=== PATIENT | female | born 1950 | race Caucasian/White ===

== ENCOUNTER → 2016-05-11 | Outpatient (CLI) | payer BC, MEDICARE, OTHER ==
--- NOTE | 2016-05-12 08:09 | MM ---
Reason for exam: screening (asymptomatic). Last mammogram was performed 1 year and 3 months ago. History: Patient is postmenopausal. Took estrogen for 10 years. Physical Findings: A clinical breast exam by your physician is recommended on an annual basis and results should be correlated with mammographic findings. MG 3D Screening Mammo W/Cad Bilateral CC and MLO view(s) were taken. Prior study comparison: January 31, 2015, bilateral MG screening mammo w CAD. January 30, 2014, bilateral MG screening mammo w CAD. There are scattered fibroglandular densities. There is no discrete abnormality. No significant changes when compared with prior studies. ASSESSMENT: Negative, BI-RAD 1 RECOMMENDATION: Routine screening mammogram of both breasts in 1 year.
== END | disposition home or self-care (01) ==
LOC: RADMAMWWP 10:21
PROVIDERS: ATTEND Internal Medicine
DX: Z12.31 Encounter for screening mammogram for malignant neoplasm of breast (principal)
CPT/HCPCS: 77063; G0202

== ENCOUNTER 2017-02-28 11:20 | Day surgery (SDC) | payer MEDICARE ==
[2017-02-28] MEDS ORDERED: LIDOCAINE 1% 20 ML VIAL (10MG/ML) FOR IV START INTRADERMA ONE (12:02)
[2017-02-28] MEDS ORDERED: ONDANSETRON 4 MG/2 ML VIAL IVP ONE (12:03)
[2017-02-28] MEDS ORDERED: LACTATED RINGERS 1,000 ML IV ONE (12:03)
[2017-02-28] MEDS ORDERED: DEXAMETHASONE SOD PHOS (MDV) 100 MG/10 ML VIAL IV ONE (12:03)
[2017-02-28] MEDS ORDERED: fentaNYL (PF) 50 MCG/ML 2 ML AMP ONE (14:19)
[2017-02-28] MEDS ORDERED: PROPOFOL 10 MG/ML 20 ML VIAL IV ONE (14:19)
[2017-02-28] MEDS ORDERED: ePHEDrine SULFATE/0.9% NACL/PF 50 MG/5 ML SYRINGE IV ONE (14:19)
[2017-02-28] MEDS ORDERED: ceFAZolin 1,000 MG VIAL ONE (14:19)
[2017-02-28] MEDS ORDERED: MIDAZOLAM 2 MG/2 ML VIAL ONE (14:19)
[2017-02-28] MEDS ORDERED: LIDOCAINE 1% INJ 10MG/ML (20 ML MDV) ONE (14:19)
[2017-02-28] MEDS ORDERED: IOHEXOL 350 MG/ML 50ML BOTTLE MISCELLANE ONE (14:37)
[2017-02-28 15:28] VITALS: TEMP 97.2
--- NOTE | 2017-02-28 15:30 | P.OP ---
Date of Procedure: 02/28/17 Preoperative Diagnosis: Distal left ureteral calculus Postoperative Diagnosis: Distal left ureteral calculus Anesthesia: GETA Surgeon: Neil Soria Estimated Blood Loss (ml): 0 Pathology: other (Left ureteral calculus) Indications for Procedure: The patient is a 66-year-old female with a history of urolithiasis who recently developed left flank pain and was discovered to have a 3-4 mm calculus at the left ureteral vesicle junction. The patient has not passed the calculus to her knowledge and says that she has been straining her urine regularly. The patient has requested left ureteroscopy with lithotripsy for treatment and was admitted for this purpose. She also has a nonobstructive 3 or 4 mm calculus in the lower pole of the left kidney. Description of Procedure: The patient was taken to the operating suite where adequate general anesthesia via LMA was instituted. The patient was placed in the dorsal lithotomy position with her legs suspended from padded Kennedy stirrups. Pneumatic compression stockings were applied to the lower legs. The genitalia was prepped with Betadine soap and draped in a sterile fashion. The external genitalia and urethral meatus were unremarkable. The 22-Belizean cystoscope sheath with 30 lens was passed through the urethra and into the bladder. The right ureteral orifice was unremarkable. There was some slight hyperemia surrounding the left ureteral orifice. The bladder was free of tumor foreign body and diverticulum. A left distal ureterogram was performed using an 8- [place] cone-tipped catheter. This confirmed a small filling defect which appeared to be within the intramural tunnel. A 0.035 straight Glidewire was passed through the left ureteral orifice and up to the proximal ureter. I attempted to pass the 8-Belizean semirigid ureteroscope through the left ureteral meatus but this proved to be impossible due to some edema. The intramural ureter was then dilated to 11-Belizean using the obturator from a 13-Belizean reentry sheath. The 8-Belizean semirigid ureteroscope was then passed through the left ureteral orifice and a 2 mm calculus was identified just superior to the intramural ureter. The ureteral calculus was trapped in a 1.9-Belizean nitinol stone basket and removed from the ureter without difficulty with the ureteroscope. The ureter was reexamined and no additional distal calculi were noted. The flexible ureteroscope was then advanced over the Glidewire and up into the left kidney. A computed tomography scan had identified a 3 mm calculus in a lower pole calyx but despite multiple attempts at visualizing a calculus this proved impossible. The ureteroscope was withdrawn leaving the Glidewire in place. The 22-Belizean cystoscope sheath was backloaded onto the Glidewire and reintroduced into the bladder. A 6-Belizean by 24 cm double-J catheter was then advanced over the Glidewire and positioned so that the proximal end coiled in the region of the renal pelvis and the distal end coiled in the bladder The cystoscope and Glidewire were removed and the procedure was ended. The patient tolerated the procedure well and left the operative room awake and in satisfactory condition. She will return in 1 week for cystoscopy and removal of the double-J catheter.
[2017-02-28 15:56] VITALS: RESP 16
--- NOTE | 2017-02-28 15:57 | FL ---
Fluoroscopy HISTORY: Abdominal pain, distal left ureteral calculus 10 seconds fluoroscopy time supplied to the referring clinician. 3 intraoperative C-arm images docu ment the procedure. See dictated report from urology.
[2017-02-28 16:16] VITALS: BP 179/83; PULSE 87
== END 2017-02-28 16:34 | disposition home or self-care (01) ==
LOC: OR 11:20
PROVIDERS: ATTEND Urology
DX: N20.2 Calculus of kidney with calculus of ureter (principal); Z87.442 Personal history of urinary calculi; I10 Essential (primary) hypertension; Z80.42 Family history of malignant neoplasm of prostate; Z79.899 Other long term (current) drug therapy; Z88.5 Allergy status to narcotic agent
CPT/HCPCS: 82365; 74420; 52352; 52332; C2625; C1758; C1769; J2250; J2405; J0690; J2001; J3010; J1100; J2704; Q9967

== ENCOUNTER → 2017-06-06 | Outpatient (CLI) | payer MEDICARE ==
--- NOTE | 2017-06-08 10:42 | MM ---
Reason for exam: screening (asymptomatic). Last mammogram was performed 1 year and 1 month ago. History: Patient is postmenopausal. Took estrogen for 10 years. Physical Findings: A clinical breast exam by your physician is recommended on an annual basis and results should be correlated with mammographic findings. MG 3D Screening Mammo W/Cad Bilateral CC and MLO view(s) were taken. Prior study comparison: May 11, 2016, bilateral MG 3d screening mammo w/cad. January 31, 2015, bilateral MG screening mammo w CAD. There are scattered fibroglandular densities. 2-3 o'clock posterior right focal asymmetry unchanged from 2014. No significant changes when compared with prior studies. ASSESSMENT: Negative, BI-RAD 1 RECOMMENDATION: Routine screening mammogram of both breasts in 1 year.
== END | disposition home or self-care (01) ==
LOC: RADMAMWWP 10:56
PROVIDERS: ATTEND Internal Medicine
DX: Z12.31 Encounter for screening mammogram for malignant neoplasm of breast (principal)
CPT/HCPCS: 77063; 77067

== ENCOUNTER 2019-06-16 16:06 | Emergency (ER) | payer MEDICARE ==
[2019-06-16 16:11] VITALS: TEMP 98
[2019-06-16] MEDS ORDERED: HYDROmorphone 0.5 MG/0.5 ML SYRINGE IM STA (16:23)
--- NOTE | 2019-06-16 16:52 | XR ---
EXAMINATION TYPE: XR wrist complete LT DATE OF EXAM: 06/16/2019 COMPARISON: NONE HISTORY: Left wrist pain TECHNIQUE: 3 views FINDINGS: There is impacted transverse fracture distal radial metaphysis. There is nondisplaced fract ure ulnar styloid process. Carpal bones are intact. There is narrowing of the scaphoid trapezium join t with spurring. There is narrowing of the first carpometacarpal joint space. IMPRESSION: Acute fractures of the distal radius and ulna as above. No significant displacement.
--- NOTE | 2019-06-16 17:11 | ED ---
Fall HPI - General Chief Complaint: Fall Stated Complaint: Fall-wrist injury Time Seen by Provider: 06/16/19 16:12 Source: patient Mode of arrival: ambulatory - History of Present Illness Initial Comments: 68-year-old female presenting today for chief complaint of fall left wrist pain. Patient states just prior to arrival she was at the home walking up the stair when she fell forward catching herself mostly with her left wrist. Patient admits to pain with ROM and swelling. Denies hand, elbow pain. Denies pain in shoulders, neck or injury to the head. States she tripped denies syncope. Patient denies numbness tingling or loss of sensation of the extremity. Upon arrival patient appears well there is no signs of acute distress, holding left wrist in splinting posture. - Related Data Home Medications Medication Instructions Recorded Confirmed PARoxetine HCL [Paxil] 30 mg PO DAILY 12/06/13 02/28/17 Zolpidem [Ambien] 5 mg PO HS PRN 12/06/13 02/28/17 Previous Rx's Medication Instructions Recorded HYDROcodone/APAP 5-325MG [[place] 5] 1 each PO Q6HR PRN 3 Days #12 tab 06/16/19 Allergies Allergy/AdvReac Type Severity Reaction Status Date / Time codeine Allergy Unknown Verified 06/16/19 16:11 Review of Systems ROS Statement: Those systems with pertinent positive or pertinent negative responses have been documented in the HPI. ROS Other: All systems not noted in ROS Statement are negative. Past Medical History Past Medical History: No Reported History History of Any Multi-Drug Resistant Organisms: None Reported Past Surgical History: No Surgical Hx Reported Past Psychological History: No Psychological Hx Reported Smoking Status: Never smoker Past Alcohol Use History: None Reported Past Drug Use History: None Reported General Exam - General Exam Comments Initial Comments: General: The patient is awake and alert, in no distress, and does not appear acutely ill. Eye: Pupils are equal, round and reactive to light, extra-ocular movements are intact. No nystagmus. There is normal conjunctiva bilaterally. No signs of icterus. Cardiovascular: There is a regular rate and rhythm. No murmur, rub or gallop is appreciated. Respiratory: Lungs are clear to auscultation, respirations are non-labored, breath sounds are equal. No wheezes, stridor, rales, or rhonchi. Musculoskeletal: Upon inspection of the wrist bilaterally. His soft tissue swelling of the left wrist in comparison with the right. Patient is able to make the okay fingers crossed thumbs-up opposes small digit and thumb extend at the wrist no evidence of wristdrop. Patient capillary refill less than 3 seconds strong radial and ulnar pulses. Patient does have rings on her ring finger (2). Normal ROM athe mcp, dip and pip joints with no tenderness. Strength 5/5 at the elbows, mCP, dip and pip joint.. Sensation intact proximal and distal to injury site. Compartments are soft and compressible. Neurological: A&O x 3. CN II-XII intact grossly, There are no obvious motor or sensory deficits. Coordination appears grossly intact. Speech is normal. Skin: Skin is warm and dry and no rashes or lesions are noted. Psychiatric: Cooperative, appropriate mood & affect, normal judgment. Limitations: no limitations Course Vital Signs 06/16/19 06/16/19 16:07 17:20 Temperature 98.0 F 98.0 F Pulse Rate 84 81 Respiratory 20 16 Rate Blood Pressure 124/70 127/87 O2 Sat by Pulse 98 98 Oximetry Procedures - Orthopedic Splinting/Casting Injury #1 Side: left Upper Extremity Injury Location: wrist Upper Extremity Immobilizer: sling/shoulder immobilizer, sugar tong splint, Ziggy wrap, synthetic pre-padded splint Medical Decision Making - Medical Decision Making 68-year-old female presenting today for chief complaint of left wrist pain after fall. no head injury, neck injury, injury to abdomen, LE or chest or right UE. Patient is neurovascularly intact. Injury states revealed a distal radius fracture with slight dorsal angulation. There is also a ulnar styloid frcture noted. Patient was placed in splint with some ventral pressure applied. Repeat neurovascular exam unchanged. Dr. Painter evaluated patient and assisted in splinting.Patient has no other noted areas of complaints. She appears well and was discharged [facility] for pain management as well as orthopedic surgery f/u. Return PMH discussed at length and i educated patient on risks involved with opioids Disposition Clinical Impression: Fracture of ulnar styloid, Distal radial fracture, Fall, Left wrist pain Disposition: HOME SELF-CARE Condition: Good Instructions (If sedation given, give patient instructions): Wrist Fracture in Adults (ED) Additional Instructions: Please use medication as discussed. Please follow-up with orthopedic surgery in the next 2-3 days. Keep splint in place. Please return to emergency room if the symptoms increase or worsen or for any other concerns. Prescriptions: HYDROcodone/APAP 5-325MG [[place] 5] 1 each PO Q6HR PRN 3 Days #12 tab PRN Reason: Pain Is patient prescribed a controlled substance at d/c from ED?: No Referrals: Diane Turner MD [Primary Care Provider] - 1-2 days Anders Whelan MD [STAFF PHYSICIAN] - 1-2 days Time of Disposition: 17:10
[2019-06-16 17:22] VITALS: BP 127/87; PULSE 81; RESP 16
== END 2019-06-16 17:20 | disposition home or self-care (01) ==
LOC: EC 16:06
DX: S52.502A Unspecified fracture of the lower end of left radius, initial encounter for closed fracture (principal); S52.612A Displaced fracture of left ulna styloid process, initial encounter for closed fracture; Z88.5 Allergy status to narcotic agent; W10.9XXA Fall (on) (from) unspecified stairs and steps, initial encounter; Y93.01 Activity, walking, marching and hiking; Y92.009 Unspecified place in unspecified non-institutional (private) residence as the place of occurrence of the external cause
CPT/HCPCS: 73110; 99283; 29125; 96372; J1170

== ENCOUNTER → 2020-06-09 | Outpatient (CLI) | payer MEDICARE ==
--- NOTE | 2020-06-10 11:14 | MM ---
Reason for exam: screening (asymptomatic). Last mammogram was performed 3 years ago. History: Patient is postmenopausal. Took estrogen for 10 years. Physical Findings: A clinical breast exam by your physician is recommended on an annual basis and results should be correlated with mammographic findings. MG 3D Screening Mammo W/Cad Bilateral CC and MLO view(s) were taken. Prior study comparison: June 06, 2017, bilateral MG 3d screening mammo w/cad. May 11, 2016, bilateral MG 3d screening mammo w/cad. There are scattered fibroglandular densities. There is chronic nodularity bilaterally. No significant changes when compared with prior studies. ASSESSMENT: Benign, BI-RAD 2 RECOMMENDATION: Routine screening mammogram of both breasts in 1 year.
== END ==
LOC: RADMAMWWP 11:20
PROVIDERS: ATTEND Internal Medicine
DX: Z12.31 Encounter for screening mammogram for malignant neoplasm of breast (principal)
CPT/HCPCS: 77063; 77067

== ENCOUNTER → 2020-08-05 | Outpatient (CLI) | payer MEDICARE ==
--- NOTE | 2020-08-05 14:09 | US ---
EXAMINATION TYPE: US kidneys/renal and bladder DATE OF EXAM: 08/05/2020 COMPARISON: None CLINICAL HISTORY: N39.0 Urinary tract infection, site not specified. Frequent UTI EXAM MEASUREMENTS: Right Kidney: 9.2 x 4.2 x 3.8 cm Left Kidney: 10.5 x 4.3 x 4.9 cm Right Kidney: No hydronephrosis or masses seen. Cortical thinning. Left Kidney: No hydronephrosis or masses seen. Dromedary hump visualized. Bladder: distended, anechoic Bilateral Jets not seen There is no evidence for hydronephrosis at this point in time. No nephrolithiasis is seen. No archana s are identified. The urinary bladder is anechoic. Bilateral ureteral jets are seen. IMPRESSION: No distinct abnormality seen.
--- NOTE | 2020-08-05 15:07 | XR ---
EXAMINATION TYPE: XR KUB DATE OF EXAM: 08/05/2020 HISTORY: Pain Comparison: None.Single KUB is submitted for interpretation. Findings: Right renal calculi: None Visualized. Right ureteral calculi: None Visualized. Left renal calculi: Left renal calculus measuring 6 mm. Left ureteral calculi: None Visualized. Pelvic calcifications: None Visualized. Bowel gas pattern is unremarkable. No free air. No mass effects. IMPRESSION: 1. Left renal calculus
== END | disposition home or self-care (01) ==
LOC: RADUSWWP 13:04
PROVIDERS: ATTEND Urology
DX: N39.0 Urinary tract infection, site not specified (principal); N20.0 Calculus of kidney
CPT/HCPCS: 74018; 76770

== ENCOUNTER → 2021-02-17 | Outpatient (CLI) | payer MEDICARE ==
[2021-02-17 11:03] LABS: Ionized Calcium 6.1 mg/dL (4.5-5.3)
== END | disposition home or self-care (01) ==
LOC: LABWHC1 09:34
PROVIDERS: ATTEND Internal Medicine
DX: E83.52 Hypercalcemia (principal)
CPT/HCPCS: 36415; 82306; 82330; 83970

== ENCOUNTER → 2021-04-27 | Outpatient (CLI) | payer MEDICARE | END | disposition home or self-care (01) | LOC: LABWHC1 11:29 | PROVIDERS: ATTEND Internal Medicine | DX: E83.52 Hypercalcemia (principal) | CPT/HCPCS: 36415; 82330; 83970 ==

== ENCOUNTER → 2021-07-22 | Outpatient (CLI) | payer MEDICARE ==
[2021-07-22 21:38] LABS: Calcium 11.7 mg/dL (8.7-10.3)
== END | disposition home or self-care (01) ==
LOC: LABWHC1 11:29
PROVIDERS: ATTEND Surgery
DX: E21.0 Primary hyperparathyroidism (principal)
CPT/HCPCS: 36415; 82306; 82310; 83970

== ENCOUNTER → 2021-08-06 | Outpatient (CLI) | payer MEDICARE ==
--- NOTE | 2021-08-06 22:24 | BD ---
EXAMINATION TYPE: Axial Bone Density DATE OF EXAM: 08/06/2021 COMPARISON: NONE CLINICAL HISTORY: 70 years year old Female. ICD-10 CODE: E21.0 PRIMARY HYPERPARATHYROIDISM Height: 60 Weight: 167.5 FRAX RISK QUESTIONS: Alcohol (3 or more units per day): NO Family History (Parent hip fracture): NO Glucocorticoids (More than 3mos): NO (Ex: prednisone, prednisolone, methylprednisolone, dexamethasone, and hydrocortisone). History of Fracture in Adulthood: YES Secondary Osteoporosis: 1. Type 1 Diabetes: NO 2. Hyperthyroidism: YES 3. Menopause before 45: NO 4. Malnutrition: NO 5. Chronic liver disease: NO Rheumatoid Arthritis: NO Current Tobacco Use: NO RISK FACTORS HISTORY OF: Hip Fracture (Right/Left): NO Spine Fracture: NO History of Wrist Fracture: LEFT When: AGE 68 Surgery to Spine/Hip(right/left)/Wrist (right/left): NO Family History of Osteoporosis: NO Active: YES Diet low in dairy products/other sources of calcium: YES Postmenopausal woman: YES Take estrogen and/or progesterone medications: NO Lost more than 2 inches in height since high school: NO Frequent falls: NO Poor Health: NO Hyperparathyroidism: YES Adrenal Insufficiency: NO MEDICATIONS: Prednisone or other steroids: NO Thyroid Medications: NO Osteoporosis Medications: NO Additional Medications: VIT D, PAXIL, BP MEDS, CHOLESTEROL MEDS, EXAM MEASUREMENTS: Bone mineral densitometry was performed using the [employer] System. Bone mineral density as measured about the Lumbar spine is: ----- L1-L4(G/cm2): 0.854 T Score Values are as follows: ----- L1: -2.6 ----- L2: -2.6 ----- L3: -2.5 ----- L4: -3.2 ----- L1-L4: -2.7 BASELINE Bone mineral density about the R hip (g/cm2): 0.700 Bone mineral density about the L hip (g/cm2): 0.660 T Score values are as follows: -----R Neck: -2.4 -----L Neck: -2.7 -----R Total: -1.6 -----L Total: -2.2 BASELINE FRAX%s: The graph provided illustrates a 25.2% chance for a major osteoporotic fx and a 7.6% chance f or the hips probability for fx in 10 years time. IMPRESSION: Osteoporosis (T Score less than -2.5). There is increased fracture risk and therapy is usually indicated based on age. Re-Screen 1-2 years. NOTE: T-SCORE=SD OF THE YOUNG ADULT MEAN.
== END | disposition home or self-care (01) ==
LOC: RADBDWWP 09:18
PROVIDERS: ATTEND Surgery
DX: M81.0 Age-related osteoporosis without current pathological fracture (principal)
CPT/HCPCS: 77080

== ENCOUNTER → 2021-08-12 | Outpatient (CLI) | payer MEDICARE ==
--- NOTE | 2021-08-12 21:25 | US ---
EXAMINATION TYPE: US thyroid st tissue head/neck DATE OF EXAM: 08/12/2021 COMPARISON: NONE CLINICAL HISTORY: E21.0 PRIMARY HYPERPARATHYROIDOSM. No parathyroid tissue seen, bilateral neck appears wnl Consider nuclear medicine parathyroid scan if additional evaluation would be of benefit. IMPRESSION: 1. No suspicious nodule to suggest parathyroid adenoma.
== END | disposition home or self-care (01) ==
LOC: RADUSWWP 10:12
PROVIDERS: ATTEND Surgery
DX: E21.0 Primary hyperparathyroidism (principal)
CPT/HCPCS: 76536

== ENCOUNTER 2021-12-10 12:07 | Emergency (ER) | payer MEDICARE ==
[2021-12-10 12:14] VITALS: PULSE 77; TEMP 97.9
[2021-12-10 12:18] VITALS: RESP 22
--- NOTE | 2021-12-10 12:37 | ED ---
General Adult HPI - General Chief complaint: Shortness of Breath Stated complaint: SOB Time Seen by Provider: 12/10/21 12:15 Source: patient, EMS, RN notes reviewed Mode of arrival: EMS Limitations: no limitations - History of Present Illness Initial comments: Patient is a pleasant 71-year-old female presenting to emergency Department with cough and short of breath. Patient has had cough for the past 3 days. Patient will follow older shortness of breath today. Patient believes she has bronchitis. Patient received nebulizer treatment prior to arrival when she started having tingling and her arms throughout. He should states this has improved however not resolved. Patient denies feeling anxious and does not want any anxiety medication. Patient states her breathing did improve and is near normal at this time. No history of similar symptoms previously. - Related Data Home Medications Medication Instructions Recorded Confirmed Zolpidem [Ambien] 5 mg PO HS 12/06/13 12/10/21 Atorvastatin Calcium [Lipitor] 40 mg PO HS 12/10/21 12/10/21 Omeprazole 20 mg PO HS 12/10/21 12/10/21 PARoxetine [Paxil] 20 mg PO HS 12/10/21 12/10/21 Triamterene-Hctz 37.5-25Mg 1 cap PO HS 12/10/21 12/10/21 [Dyazide 37.5-25 Capsule] Previous Rx's Medication Instructions Recorded Albuterol Inhaler [Ventolin Hfa 2 puff INHALATION Q4HR PRN #1 each 12/10/21 Inhaler] Allergies Allergy/AdvReac Type Severity Reaction Status Date / Time codeine Allergy Unknown Verified 12/10/21 14:51 Review of Systems ROS Statement: Those systems with pertinent positive or pertinent negative responses have been documented in the HPI. ROS Other: All systems not noted in ROS Statement are negative. Constitutional: Denies: fever Eyes: Denies: eye pain ENT: Denies: ear pain Respiratory: Reports: as per HPI, cough, dyspnea Cardiovascular: Denies: chest pain Endocrine: Denies: fatigue Gastrointestinal: Denies: abdominal pain Genitourinary: Denies: dysuria Musculoskeletal: Denies: back pain Skin: Denies: rash Neurological: Denies: weakness Past Medical History Past Medical History: No Reported History History of Any Multi-Drug Resistant Organisms: None Reported Past Surgical History: No Surgical Hx Reported Past Psychological History: No Psychological Hx Reported Smoking Status: Never smoker Past Alcohol Use History: None Reported Past Drug Use History: None Reported General Exam Limitations: no limitations General appearance: alert, in no apparent distress Head exam: Present: normocephalic Eye exam: Present: normal appearance Neck exam: Present: normal inspection Respiratory exam: Present: normal lung sounds bilaterally, rhonchi (With cough) Cardiovascular Exam: Present: regular rate, normal rhythm GI/Abdominal exam: Present: soft. Absent: tenderness Extremities exam: Present: normal inspection. Absent: pedal edema, calf tenderness Neurological exam: Present: alert Psychiatric exam: Present: normal affect, normal mood Skin exam: Present: normal color Course Vital Signs 12/10/21 12/10/21 12:09 12:14 Temperature 97.9 F Pulse Rate 77 Respiratory 20 22 Rate O2 Sat by Pulse 98 Oximetry - Reevaluation(s) Reevaluation #1: 12/10/21 12:57 Patient is now requesting anxiety medication Medical Decision Making - Medical Decision Making Patient reevaluated and feeling much better. Patient does have mild component of dehydration with probable hyperventilation following nebulizer treatment. This would explain elevation and lactic acid. Patient is feeling much better at this time and is resting comfortably in bed. Patient family updated on results and need for follow-up. Patient is receptive to inhaler. - Lab Data Result diagrams: 12/10/21 12:56 12/10/21 12:56 Lab Results 12/10/21 12/10/21 12/10/21 Range/Units 12:56 12:56 12:56 WBC 7.3 (3.8-10.6) k/uL RBC 4.12 (3.80-5.40) m/uL Hgb 12.4 (11.4-16.0) gm/dL Hct 38.3 (34.0-46.0) % MCV 92.9 (80.0-100.0) fL MCH 30.2 (25.0-35.0) pg MCHC 32.5 (31.0-37.0) g/dL RDW 12.8 (11.5-15.5) % Plt Count 321 (150-450) k/uL MPV 7.9 Neutrophils % 80 % Lymphocytes % 12 % Monocytes % 4 % Eosinophils % 1 % Basophils % 1 % Neutrophils # 5.9 (1.3-7.7) k/uL Lymphocytes # 0.9 L (1.0-4.8) k/uL Monocytes # 0.3 (0-1.0) k/uL Eosinophils # 0.1 (0-0.7) k/uL Basophils # 0.1 (0-0.2) k/uL PT 9.8 (9.0-12.0) sec INR 0.9 (<1.2) APTT 21.5 L (22.0-30.0) sec D-Dimer 0.85 H (<0.60) mg/L FEU Sodium 141 (137-145) mmol/L Potassium 3.7 (3.5-5.1) mmol/L Chloride 106 (98-107) mmol/L Carbon Dioxide 20 L (22-30) mmol/L Anion Gap 15 mmol/L BUN 25 H (7-17) mg/dL Creatinine 1.20 H (0.52-1.04) mg/dL Est GFR (CKD-EPI)AfAm 52 (>60 ml/min/1.73 sqM) Est GFR (CKD-EPI)NonAf 45 (>60 ml/min/1.73 sqM) Glucose 120 H (74-99) mg/dL Plasma Lactic Acid Bartolo (0.7-2.0) mmol/L Calcium 9.8 (8.4-10.2) mg/dL Total Bilirubin 0.9 (0.2-1.3) mg/dL AST 23 (14-36) U/L ALT 13 (4-34) U/L Alkaline Phosphatase 89 (38-126) U/L Troponin I (0.000-0.034) ng/mL NT-Pro-B Natriuret Pep pg/mL Total Protein 7.5 (6.3-8.2) g/dL Albumin 4.5 (3.5-5.0) g/dL Coronavirus (PCR) (Not Detectd) Influenza Type A RNA (Not Detectd) Influenza Type B (PCR) (Not Detectd) 12/10/21 12/10/21 12/10/21 Range/Units 12:56 12:56 12:56 WBC (3.8-10.6) k/uL RBC (3.80-5.40) m/uL Hgb (11.4-16.0) gm/dL Hct (34.0-46.0) % MCV (80.0-100.0) fL MCH (25.0-35.0) pg MCHC (31.0-37.0) g/dL RDW (11.5-15.5) % Plt Count (150-450) k/uL MPV Neutrophils % % Lymphocytes % % Monocytes % % Eosinophils % % Basophils % % Neutrophils # (1.3-7.7) k/uL Lymphocytes # (1.0-4.8) k/uL Monocytes # (0-1.0) k/uL Eosinophils # (0-0.7) k/uL Basophils # (0-0.2) k/uL PT (9.0-12.0) sec INR (<1.2) APTT (22.0-30.0) sec D-Dimer (<0.60) mg/L FEU Sodium (137-145) mmol/L Potassium (3.5-5.1) mmol/L Chloride (98-107) mmol/L Carbon Dioxide (22-30) mmol/L Anion Gap mmol/L BUN (7-17) mg/dL Creatinine (0.52-1.04) mg/dL Est GFR (CKD-EPI)AfAm (>60 ml/min/1.73 sqM) Est GFR (CKD-EPI)NonAf (>60 ml/min/1.73 sqM) Glucose (74-99) mg/dL Plasma Lactic Acid Bartolo 3.9 H* (0.7-2.0) mmol/L Calcium (8.4-10.2) mg/dL Total Bilirubin (0.2-1.3) mg/dL AST (14-36) U/L ALT (4-34) U/L Alkaline Phosphatase (38-126) U/L Troponin I <0.012 (0.000-0.034) ng/mL NT-Pro-B Natriuret Pep 100 pg/mL Total Protein (6.3-8.2) g/dL Albumin (3.5-5.0) g/dL Coronavirus (PCR) (Not Detectd) Influenza Type A RNA (Not Detectd) Influenza Type B (PCR) (Not Detectd) 12/10/21 12/10/21 Range/Units 12:56 12:56 WBC (3.8-10.6) k/uL RBC (3.80-5.40) m/uL Hgb (11.4-16.0) gm/dL Hct (34.0-46.0) % MCV (80.0-100.0) fL MCH (25.0-35.0) pg MCHC (31.0-37.0) g/dL RDW (11.5-15.5) % Plt Count (150-450) k/uL MPV Neutrophils % % Lymphocytes % % Monocytes % % Eosinophils % % Basophils % % Neutrophils # (1.3-7.7) k/uL Lymphocytes # (1.0-4.8) k/uL Monocytes # (0-1.0) k/uL Eosinophils # (0-0.7) k/uL Basophils # (0-0.2) k/uL PT (9.0-12.0) sec INR (<1.2) APTT (22.0-30.0) sec D-Dimer (<0.60) mg/L FEU Sodium (137-145) mmol/L Potassium (3.5-5.1) mmol/L Chloride (98-107) mmol/L Carbon Dioxide (22-30) mmol/L Anion Gap mmol/L BUN (7-17) mg/dL Creatinine (0.52-1.04) mg/dL Est GFR (CKD-EPI)AfAm (>60 ml/min/1.73 sqM) Est GFR (CKD-EPI)NonAf (>60 ml/min/1.73 sqM) Glucose (74-99) mg/dL Plasma Lactic Acid Bartolo (0.7-2.0) mmol/L Calcium (8.4-10.2) mg/dL Total Bilirubin (0.2-1.3) mg/dL AST (14-36) U/L ALT (4-34) U/L Alkaline Phosphatase (38-126) U/L Troponin I (0.000-0.034) ng/mL NT-Pro-B Natriuret Pep pg/mL Total Protein (6.3-8.2) g/dL Albumin (3.5-5.0) g/dL Coronavirus (PCR) Not Detected (Not Detectd) Influenza Type A RNA Not Detected (Not Detectd) Influenza Type B (PCR) Not Detected (Not Detectd) - Radiology Data Radiology results: report reviewed (CT angios chest shows hiatal hernia. No acute process.), image reviewed (Chest x-ray reveals no acute process) Disposition Clinical Impression: Bronchitis Disposition: HOME SELF-CARE Condition: Stable Instructions (If sedation given, give patient instructions): Acute Bronchitis (ED) Additional Instructions: Please do follow-up with primary care physician in the next day or 2 for reche ck. Prescription has been sent to pharmacy. Return for difficulty breathing, fevers, worsening or changing symptoms or any other concerns. Prescriptions: Albuterol Inhaler [Ventolin Hfa Inhaler] 2 puff INHALATION Q4HR PRN #1 each PRN Reason: Dyspnea Is patient prescribed a controlled substance at d/c from ED?: No Referrals: Diane Turner MD [Primary Care Provider] - 1-2 days Time of Disposition: 14:56
[2021-12-10] MEDS ORDERED: ALPRAZolam 0.25 MG TAB PO STA (12:56)
[2021-12-10 13:00] LABS: Basophils # (A) 0.1 k/uL (0-0.2); Basophils % (A) 1 %; Eosinophils # (A) 0.1 k/uL (0-0.7); Eosinophils % (A) 1 %; HCT 38.3 % (34.0-46.0); HGB 12.4 gm/dL (11.4-16.0); Lymphocytes # (A) 0.9 k/uL (1.0-4.8); Lymphocytes % (A) 12 %; MCH 30.2 pg (25.0-35.0); MCHC 32.5 g/dL (31.0-37.0); MCV 92.9 fL (80.0-100.0); Mean Platelet Volume 7.9; Monocytes # (A) 0.3 k/uL (0-1.0); Monocytes % (A) 4 %; Neutrophils # (A) 5.9 k/uL (1.3-7.7); Neutrophils % (A) 80 %; Platelet Count 321 k/uL (150-450); RBC 4.12 m/uL (3.80-5.40); RDW 12.8 % (11.5-15.5); WBC 7.3 k/uL (3.8-10.6)
[2021-12-10 13:11] LABS: Albumin 4.5 g/dL (3.5-5.0); Calcium 9.8 mg/dL (8.4-10.2); Potassium 3.7 mmol/L (3.5-5.1); Total Bilirubin 0.9 mg/dL (0.2-1.3); Total Protein 7.5 g/dL (6.3-8.2)
[2021-12-10] MEDS ORDERED: SODIUM CHLORIDE 0.9% 1,000 ML IV STA (13:21)
--- NOTE | 2021-12-10 13:27 | XR ---
EXAMINATION TYPE: XR chest 2V DATE OF EXAM: 12/10/2021 COMPARISON: NONE HISTORY: Difficulty in breathing. TECHNIQUE: Frontal and lateral views of the chest are obtained. FINDINGS: There is no focal air space opacity, pleural effusion, or pneumothorax seen. The cardiac silhouette size is within normal limits. Retrocardiac opacity consistent with moderate to large size hiatal hernia is noted. The osseous structures are intact. IMPRESSION: No acute pulmonary process.
[2021-12-10 13:29] LABS: INR 0.9 (<1.2); Prothrombin Time 9.8 sec (9.0-12.0)
[2021-12-10 13:37] LABS: Partial Thromboplastin Time 21.5 sec (22.0-30.0)
--- NOTE | 2021-12-10 14:23 | CT ---
EXAMINATION TYPE: CT angio chest CT DLP: 332 mGycm, Automated exposure control for dose reduction was used. DATE OF EXAM: 12/10/2021 2:13 PM COMPARISON: Chest radiograph from same day. CT abdomen pelvis 02/13/2017 CLINICAL INDICATION:Female, 71 years old with history of dyspnea; SOB TECHNIQUE/CONTRAST: CTA scan of the thorax is performed with IV Contrast, patient injected with 100 mL of Isovue 370, pul monary embolism protocol. MIP images are created and reviewed. FINDINGS: Pulmonary Artery: There is no evidence for a filling defect within the pulmonary vasculature to sugge st acute pulmonary embolism. The pulmonary artery is of normal size. Lungs/Pleura: No evidence of focal consolidation, pleural effusion or pneumothorax. Minimal biapical pleural-parenchymal scarring. No concerning pulmonary nodules or masses. Airway: Large airways are patent. Heart: Heart is within normal limits for size.. Vasculature: No evidence of aortic aneurysm. Atherosclerotic calcification of the aorta. Mediastinum: No gross evidence of adenopathy. Musculoskeletal: No acute osseous abnormalities Soft Tissues: Unremarkable. Lower neck: No significant findings. Upper Abdomen: Large hiatal hernia containing majority of the stomach which is similar to prior exami nation 2017. 1.2 cm right superior pole renal cyst. IMPRESSION: 1. No evidence of pulmonary embolism or acute thoracic process. 2. Redemonstration of large hiatal hernia.
== END 2021-12-10 15:04 | disposition home or self-care (01) ==
LOC: EC 12:07
DX: J40 Bronchitis, not specified as acute or chronic (principal); Z88.5 Allergy status to narcotic agent; Z20.822 Contact with and (suspected) exposure to COVID-19
CPT/HCPCS: 36415; 85379; 83880; 80053; 83605; 84484; 85025; 85610; 85730; 87502; 87635; 71046; 71275; 99285; 96360; Q9967

== ENCOUNTER → 2022-03-30 | Outpatient (CLI) | payer MEDICARE ==
--- NOTE | 2022-03-31 17:50 | MM ---
Reason for Exam: Screening (asymptomatic). Last mammogram was performed 1 year(s) and 9 month(s) ago. Patient History: Menarche at age 10. First Full-Term at age 18. Postmenopausal. Patient used Estrogen for 10 years. Sister had breast cancer, age 72. Risk Values: Nathalie 5 year model risk: 3.4%. NCI Lifetime model risk: 8.2%. Prior Study Comparison: 05/11/2016 Bilateral Screening Mammogram, [facility]. 06/06/2017 Bilateral Screening Mammogram, [facility]. 06/09/2020 Bilateral Screening Mammogram, [facility]. Tissue Density: There are scattered fibroglandular densities. Findings: Analyzed By CAD. Pattern is stable No suspicious groups of microcalcifications, spiculated or lobular masses, architectural distortion or other secondary signs of malignancy are mammographically apparent. Overall Assessment: Benign, BI-RAD 2 Management: Screening Mammogram of both breasts in 1 year. A negative mammogram report should not preclude additional follow up of suspicious palpable abnormalities. Patient should continue monthly self breast exam. A clinical breast exam by your physician is recommended on an annual basis and results should be correlated with mammographic findings. Electronically signed and approved by: James Avalos D.O. Radiologis
== END | disposition home or self-care (01) ==
LOC: RADMAMWWP 13:12
PROVIDERS: ATTEND Internal Medicine
DX: Z12.31 Encounter for screening mammogram for malignant neoplasm of breast (principal); Z78.0 Asymptomatic menopausal state; Z80.3 Family history of malignant neoplasm of breast
CPT/HCPCS: 77063; 77067

== ENCOUNTER → 2023-08-12 | Outpatient (CLI) | payer MEDICARE ==
--- NOTE | 2023-08-15 08:21 | MM ---
Reason for Exam: Screening (asymptomatic). Last mammogram was performed 1 year(s) and 5 month(s) ago. Patient History: Menarche at age 10. First Full-Term at age 18. Postmenopausal. Patient used Estrogen for 10 years. Sister had breast cancer, age 72. Risk Values: Nathalie 5 year model risk: 3.4%. NCI Lifetime model risk: 7.7%. Prior Study Comparison: 06/06/2017 Bilateral Screening Mammogram, [facility]. 06/09/2020 Bilateral Screening Mammogram, [facility]. 03/30/2022 Bilateral MG 3D screening mammo w/cad, [facility]. Tissue Density: The breasts are heterogeneously dense, which may obscure small masses. Findings: Analyzed By CAD. There is no suspicious group of microcalcifications or new suspicious mass in either breast. Benign calcifications. Overall Assessment: Benign, BI-RAD 2 Management: Screening Mammogram of both breasts in 1 year. . Patient should continue monthly self-breast exams. A clinical breast exam by your physician is recommended on an annual basis. This exam should not preclude additional follow-up of suspicious palpable abnormalities. Note on Nathalie scores and lifetime risk: 1. A Nathalie score greater than 3% is considered moderate risk. If this is the case, consider specialist referral to assess eligibility for a risk reducing agent. 2. If overall lifetime risk for the development of breast cancer is 20% or higher, the patient may qualify for future screening with alternating mammogram and breast MRI. Electronically signed and approved by: Lee Rodriguez M.D. Radiologis
== END | disposition home or self-care (01) ==
LOC: RADMAMWWP 11:32
PROVIDERS: ATTEND Internal Medicine
DX: Z12.31 Encounter for screening mammogram for malignant neoplasm of breast (principal); Z80.3 Family history of malignant neoplasm of breast; Z78.0 Asymptomatic menopausal state
CPT/HCPCS: 77063; 77067

== ENCOUNTER → 2024-10-08 | Outpatient (CLI) | payer MEDICARE ==
--- NOTE | 2024-10-08 17:21 | MM ---
Reason for Exam: Screening (asymptomatic). Last mammogram was performed 1 year(s) and 1 month(s) ago. Patient History: Menarche at age 10. First Full-Term at age 18. Postmenopausal. Patient used Estrogen for 10 years. Sister had breast cancer, age 72. Risk Values: Nathalie 5 year model risk: 3.4%. NCI Lifetime model risk: 6.8%. Prior Study Comparison: 06/09/2020 Bilateral Screening Mammogram, [facility]. 03/30/2022 Bilateral MG 3D screening mammo w/cad, [facility]. 08/12/2023 Bilateral MG 3D screening mammo w/cad, [facility]. Tissue Density: There are scattered areas of fibroglandular density. Findings: Analyzed By CAD. There is no suspicious group of microcalcifications or new suspicious mass in either breast. Overall Assessment: Negative, BI-RAD 1 Management: Screening Mammogram of both breasts in 1 year. See note below in regards to the patient's increased 5 year Nathalie score. Patient should continue monthly self-breast exams. A clinical breast exam by your physician is recommended on an annual basis. This exam should not preclude additional follow-up of suspicious palpable abnormalities. Note on Nathalie scores and lifetime risk: 1. A Nathalie score greater than 3% is considered moderate risk. If this is the case, consider specialist referral to assess eligibility for a risk reducing agent. 2. If overall lifetime risk for the development of breast cancer is 20% or higher, the patient may qualify for future screening with alternating mammogram and breast MRI. [facility], , 10/08/2024 5:18 PM. Electronically signed and approved by: Bruna Navas M.D. Radiologist
== END | disposition home or self-care (01) ==
LOC: RADMAMWWP 10:57
PROVIDERS: ATTEND Internal Medicine
DX: Z12.31 Encounter for screening mammogram for malignant neoplasm of breast (principal); R92.323 Mammographic fibroglandular density, bilateral breasts; Z78.0 Asymptomatic menopausal state; Z80.3 Family history of malignant neoplasm of breast
CPT/HCPCS: 77063; 77067